=== PATIENT | female | born 1980 | race Hispanic/Latino ===

== ENCOUNTER 2019-01-21 08:36 | Inpatient (IN) | payer BC ==
[2019-01-21 09:26] VITALS: BMI 40.6
[2019-01-21 10:35] LABS: ALT (SGPT) 7 U/L (8-55); AST (SGOT) 10 U/L (5-34); Albumin 2.9 g/dL (3.5-5.0); Alkaline Phosphatase 106 U/L (40-150); Anion Gap 12 mmol/L (10-20); BUN (Urea Nitrogen) 5 mg/dL (7.0-18.7); Bilirubin, Total 0.2 mg/dL (0.2-1.2); Calc. Creatinine Clearance 196 mL/min (70-130); Calcium 8.7 mg/dL (7.8-10.44); Carbon Dioxide 21 mmol/L (22-29); Chloride 109 mmol/L (98-107); Estimated GFR-MDRD Greater than 90; Glucose 73 mg/dL (70-105); Potassium 3.5 mmol/L (3.5-5.1); Protein, Total 5.9 g/dL (6.0-8.3); Sodium 138 mmol/L (136-145)
[2019-01-21 10:37] LABS: Hemoglobin 11.4 g/dL (12.0-16.0); Mean Corpuscular HGB CONC 32.1 g/dL (32.0-36.0); Mean Corpuscular Hemoglobin 28.5 pg (27.0-31.0); Mean Corpuscular Volume 88.6 fL (78.0-98.0); Platelet Count 191 thou/uL (130-400); RBC Distribution Width 12.4 % (11.5-14.5); Red Blood Cell (RBC) Count 3.99 mill/uL (4.20-5.40); White Blood Cell (WBC) Count 9.8 thou/uL (4.8-10.8)
[2019-01-21] MEDS ORDERED: Betamet Acet/Betamet Na Ph 30 MG/5 ML VIAL ONE (12:05)
[2019-01-21] MEDS ORDERED: Betamet Acet/Betamet Na Ph 30 MG/5 ML VIAL IM SCH (12:30)
[2019-01-21 12:34] LABS: Bilirubin Negative (Negative); Blood, Urine Negative (Negative); Clarity CLOUDY (Clear); Glucose, Urine (Dipstick) Negative (Negative); Leukocyte Small (Negative); Nitrite Negative (Negative); Protein, Urine (Dipstick) Negative (Neg-Trace); Specific Gravity, Urine 1.018 (1.002-1.036)
[2019-01-21 12:36] LABS: Hyaline Casts/LPF 7-10 HYALINE CAST LPF (0-3 Hyaline); Pathc Cast-AUWi Flag 1.36 (0-2.49)
[2019-01-21 12:50] LABS: Bacteria/HPF 3+ HPF (None Seen); RBC/HPF 0-3 HPF (0-3); Renal Epithelial None Seen HPF (0-3); Transitional Epithelial NONE SEEN HPF (0-3)
[2019-01-21] MEDS ORDERED: Promethazine HCl 25 MG/ML VIAL IM PRN (14:17)
[2019-01-21] MEDS ORDERED: Ondansetron PF 4 MG/2 ML Vial IVP PRN (14:17)
[2019-01-21] MEDS: Acetaminophen 500 MG TAB PO PRN ×2 (15:08→23:29)
[2019-01-21] MEDS ORDERED: NIFEdipine 10 MG CAP PO PRN (16:05)
[2019-01-21] MEDS ORDERED: Fioricet 325/50/40 mg Tablet PO PRN (17:02)
[2019-01-21] MEDS ORDERED: Labetalol 100 MG TAB PO SCH (21:00)
--- NOTE | 2019-01-21 23:36 | HP ---
ADMISSION DIAGNOSES: 1. G3, P1-0-1-1 at 32 weeks and 1 day. 2. Preeclampsia, superimposed on chronic hypertension. HISTORY OF PRESENT ILLNESS: Ms. Bridget Aranda is a 38-year-old, G3, P1-0-1-1, who was diagnosed with suspected preeclampsia, superimposed on chronic hypertension at approximately 29 weeks' gestational age. The patient's blood pressures have been well controlled on labetalol 100 mg b.i.d. throughout her , and increase in her blood pressure was noted around 29 weeks as well as protein in her urine. The patient has been seen weekly with normal BPPs and normal CBC and CMP. Her blood pressures reportedly at home have been mild range until this week when she noted an increase in the baseline of her blood pressures at home. Yesterday, she was seen in the office after reporting blood pressures of 150s/90s at home and a slight headache that was relieved with Tylenol. I saw her in the office yesterday, and she had a biophysical profile that was within normal limits, and we discussed calling the office for any severe range of blood pressures or features. The patient called the after-hours line early in this morning to report an increase in her blood pressure at home as well as headache. The patient then presented to Labor and Delivery for evaluation. In Labor and Delivery today, the majority of her blood pressures have been in the persistent mild range. At the time of this dictation, she was noted to have one systolic in the 160s and two separate diastolic blood pressures in the 100 range. When she presented with headache, she was given Tylenol. She did not eat breakfast or lunch at the time of her presentation and was given a meal tray. The patient 's headache improved after eating and after Tylenol. Because of the isolated severe range of blood pressures and headache that was reported this morning, we discussed admission observation in Labor and Delivery as well as a dose of Celestone for lung maturity in the event that she was diagnosed with superimposed preeclampsia with severe features, and delivery would be indicated earlier at that time. PAST MEDICAL HISTORY: Obesity, depressive disorder, and chronic hypertension. CURRENT MEDICATIONS: 1. Labetalol 100 mg q PM 2. Aspirin 81 mg daily. 3. Folic acid 4 mg a day. 4. Lansoprazole 30 mg a day. 5. tablet. 6. Prozac 40 mg a day. PREVIOUS SURGICAL HISTORY: No surgeries. FAMILY HISTORY: Significant for hypercholesterolemia, hypertension, and diabetes. PAST OBSTETRICAL HISTORY: Previous vaginal delivery in 2004, 5 pounds 12 ounces born at 38 weeks, induction of labor for -induced hypertension. In 2003, elective termination of in the first trimester. GYNECOLOGIC HISTORY: Unremarkable. PHYSICAL EXAMINATION: VITAL SIGNS: Blood pressure is in the 130s to 150s over 80s to 90s primarily with isolated systolic in the 160 and isolated diastolic in the 100, afebrile. GENERAL: No acute distress. Alert and oriented. CARDIOVASCULAR: Regular rate and rhythm. LUNGS: Nonlabored breathing. ABDOMEN: Gravid, nontender. heart tones reassuring. Contractions, none. : Deferred. EXTREMITIES: +1 lower extremity edema. Normal range of motion. PSYCHIATRIC: Appropriate affect. OBSTETRICAL LABS: Blood type O positive, antibody screen negative, RPR nonreactive, hepatitis B surface antigen negative, HIV nonreactive, Gonorrhea and Chlamydia not detected. Rubella nonimmune. Pap smear normal. Genetic screening, NIPT, low risk male. AFP negative, 1-hour 133, 3 hours abnormal. ASSESSMENT AND PLAN: Ms. Bridget Aranda is a 38-year-old G3, P1-0-1-1 at 32 weeks and 1 day with superimposed preeclampsia on chronic hypertension and concern for possible conversion to severe features. The patient was given a dose of Celestone for lung maturity, and labetalol has been ordered. Labetalol 100mg BID has been ordered as well as Nifedipine 10 mg p.r.n. has been ordered for severe range of blood pressures. Continue observation overnight and if there is a concern of persistent elevated severe range of blood pressures or severe symptoms reported by the patient or lab abnormalities noted on repeat labs in the morning. We will move towards induction of labor. The patient has a second dose of Celestone pending in the morning. She is also known to have gestational diabetes in this and solve the nutrition as per her first visit yesterday. We will check her fasting blood sugar and 2-hour postprandial blood sugars while she is here on Labor and Delivery to continue monitoring. The patient's questions have been answered. Job ID: [id number] [facility]
[2019-01-22] MEDS: Labetalol 100 MG TAB PO SCH ×2 (05:51→18:43)
[2019-01-22] MEDS: Acetaminophen 500 MG TAB PO PRN ×3 (05:51→18:42)
[2019-01-22 06:22] LABS: ALT (SGPT) 8 U/L (8-55); AST (SGOT) 13 U/L (5-34); Alkaline Phosphatase 107 U/L (40-150); Anion Gap 12 mmol/L (10-20); BUN (Urea Nitrogen) 6 mg/dL (7.0-18.7); Bilirubin, Total 0.2 mg/dL (0.2-1.2); Calc. Creatinine Clearance 193 mL/min (70-130); Calcium 9.2 mg/dL (7.8-10.44); Carbon Dioxide 19 mmol/L (22-29); Chloride 109 mmol/L (98-107); Estimated GFR-MDRD Greater than 90; Globulin 3.1 g/dL (2.4-3.5); Glucose 104 mg/dL (70-105); Potassium 3.9 mmol/L (3.5-5.1); Protein, Total 6.1 g/dL (6.0-8.3); Sodium 136 mmol/L (136-145)
[2019-01-22 06:31] LABS: Hemoglobin 11.3 g/dL (12.0-16.0); Mean Corpuscular HGB CONC 33.8 g/dL (32.0-36.0); Mean Corpuscular Hemoglobin 30.3 pg (27.0-31.0); Mean Corpuscular Volume 89.7 fL (78.0-98.0); Mean Platelet Volume 12.3 fL (7.4-10.4); Platelet Count 177 thou/uL (130-400); RBC Distribution Width 12.2 % (11.5-14.5); Red Blood Cell (RBC) Count 3.71 mill/uL (4.20-5.40); White Blood Cell (WBC) Count 13.2 thou/uL (4.8-10.8)
--- NOTE | 2019-01-22 07:48 | HP ---
REGULAR PHYSICIAN: Nathan Brothers DO, MS. EVALUATING PHYSICIAN: Trevor Mcmillan MD CHIEF COMPLAINT: Complaining of headaches over the last 24 hours. HISTORY OF PRESENT ILLNESS: Ms. Aranda is a 38-year-old , G3, P1, with an estimated date of confinement of 03/17/2019, who presents after calling Dr. Brothers's office with a history of headache over the last 24 hours. She states she has seen occasional scotoma, but denies right upper quadrant pain, nausea, or vomiting. Her care has been with Dr. Brothers and has been complicated by pre-existing hypertension for which she takes labetalol 100 mg p.o. daily. She has also been followed for gestational diabetes, but has been controlled on diet alone. PAST MEDICAL HISTORY: Hypertension. PAST SURGICAL HISTORY: None. CURRENT MEDICATIONS: 1. vitamins. 2. Prozac. SOCIAL HISTORY: Denies tobacco or alcohol use. FAMILY HISTORY: Unremarkable. ALLERGIES: NO KNOWN ALLERGIES. REVIEW OF SYSTEMS: She denies decreased movement, ruptured membranes, or vaginal bleeding. PHYSICAL EXAMINATION: VITAL SIGNS: Initial blood pressure is 152/80, followup blood pressure is 134/69. GENERAL: She is pleasant and in no acute distress. ABDOMEN: Soft, nontender, and gravid. heart rate tracing is stable with no decelerations. No significant uterine contractions were seen. ASSESSMENT: 1. A 32 and 1/7 week intrauterine . 2. Chronic hypertension, rule out superimposed preeclampsia. PLAN: CBC, chemistries, and urine for protein and creatinine ratio have been ordered. Her blood pressures will be followed closely. Job ID: [id number]
--- NOTE | 2019-01-22 08:25 | PDOC.EVN ---
Event Note - Event Note Event Note: S: COLINDRES persists, mild->feels like muscles are tight across head and face, does endorse some light sensitivity, no nausea or vomiting, no scotoma, no RUQ pain or increased swelling, good FM, heartburn O: BP normal to mild range on the unit since transfer from L and D NAD A and O nonlabored breathing abd gravid, obese normal ROM, trace LE edema A/P: HOD2 for close observation of BP with superimposed preeclampsia, no severe range BP during last shift, taking labetalol 100mg BID, persistent mild COLINDRES, encouraged hydration, will do trial of sumatriptan this AM. Discussed [employer]ENOGR[employer]IC [employer] REPORTER symptoms of severe features and that with her BP WNL today we will see if COLINDRES resolves with therapy. Labs reviewed and WNL. 2nd dose of Celestone due at noon.
[2019-01-22] MEDS ORDERED: SUMAtriptan Succinate 50 MG TAB PO SCH (08:30)
[2019-01-22] MEDS ORDERED: Betamet Acet/Betamet Na Ph 30 MG/5 ML VIAL IM SCH (12:00)
--- NOTE | 2019-01-22 16:59 | PDOC.EVN ---
Event Note - Event Note Event Note: HD2 S: COLINDRES has improved, is very "light" no RUQ pain or scotoma, good Fm O: Vital Signs (12 hours) Temp Pulse Resp BP BP Pulse Ox 01/22/19 15:30 98.7 F 64 18 154/75 H 01/22/19 12:05 97.8 F 61 20 150/72 H 01/22/19 07:54 98.0 F 61 20 120/61 97 01/22/19 05:51 65 133/67 Weight Weight 215 lb GEN: NAD A adn O Nonlabored breathing Abd gravid PSY: normal affect A/P: HD2 admission for observation with preeclampsia @ 32+ weeks. Labs stable, BP mild range today but overall increased from baseline. S/P 2 doses of Celestone with benefit tomorrow. Discussed continued close observation over night. If AM labs stable/WNL, BP mid range and COLINDRES resolved will plan for DC in AM. If sustained severe BP or features or lab changes will plan for IOL. Plan of care reviewed w patient.
[2019-01-22] MEDS ORDERED: HYDROcodone/Acetaminophen 5/325 mg Tablet PO PRN ×2 (22:13→22:14)
[2019-01-23 06:28] LABS: ALT (SGPT) 7 U/L (8-55); AST (SGOT) 10 U/L (5-34); Alkaline Phosphatase 103 U/L (40-150); Anion Gap 12 mmol/L (10-20); BUN (Urea Nitrogen) 7 mg/dL (7.0-18.7); Bilirubin, Total 0.2 mg/dL (0.2-1.2); Calc. Creatinine Clearance 193 mL/min (70-130); Calcium 9.1 mg/dL (7.8-10.44); Carbon Dioxide 20 mmol/L (22-29); Chloride 108 mmol/L (98-107); Estimated GFR-MDRD Greater than 90; Globulin 3.2 g/dL (2.4-3.5); Glucose 111 mg/dL (70-105); Potassium 3.9 mmol/L (3.5-5.1); Protein, Total 6.2 g/dL (6.0-8.3); Sodium 136 mmol/L (136-145)
[2019-01-23 06:42] LABS: #Eosinphils 0.1 thou/uL (0.0-0.7); #Lymphocytes 1.7 thou/uL (1.20-3.40); #Monocytes 0.7 thou/uL (0.11-0.59); #Neutrophils 11.7 thou/uL (1.40-6.50); %Basophils 0.1 % (0.0-1.0); %Eosinophils 0.4 % (0.0-10.0); %Lymphocytes 12.2 % (21.0-51.0); %Monocytes 5.1 % (0.0-10.0); %Neutrophils 82.3 % (42.0-75.0); Hemoglobin 11.2 g/dL (12.0-16.0); Large Platelets SLIGHT; MDiff Complete? YES; Mean Corpuscular HGB CONC 33.6 g/dL (32.0-36.0); Mean Corpuscular Hemoglobin 30.1 pg (27.0-31.0); Mean Corpuscular Volume 89.4 fL (78.0-98.0); Mean Platelet Volume 11.9 fL (7.4-10.4); Platelet Count 178 thou/uL (130-400); Platelet Morphology Comment Appears Adequate; RBC Distribution Width 12.2 % (11.5-14.5); Red Blood Cell (RBC) Count 3.74 mill/uL (4.20-5.40); White Blood Cell (WBC) Count 14.2 thou/uL (4.8-10.8)
[2019-01-23] MEDS: Labetalol 100 MG TAB PO SCH ×2 (08:36→18:05)
--- NOTE | 2019-01-23 10:14 | PDOC.EVN ---
Event Note - Event Note Event Note: HD#3 S: COLINDRES had improved yesterday during the day but became more intense last night, not feeling well, feeling weak when COLINDRES is strong. COLINDRES not relieved w Tylenol, or [place] that was ordered overnight. Some temporary improvement after sumatriptan last night. Good FM, no contractions. No RUQ pain, no increase in edema. Pt does report itching on upper extremities that started overnight. O: VS normal to mild range BP Gen: NAD, A and O Chest: non labored breathing Abd: gravid, obese Ext: trace LE edema, moving extremities equally Neuro: no gross focal defects Laboratory Results - last 24 hr 01/23/19 01/23/19 01/23/19 05:48 05:48 05:49 WBC 14.2 H RBC 3.74 L Hgb 11.2 L Hct 33.4 L MCV 89.4 MCH 30.1 MCHC 33.6 RDW 12.2 Plt Count 178 MPV 11.9 H Neutrophils % 82.3 H Neutrophils % (Manual) Not Reportable Lymphocytes % 12.2 L Monocytes % 5.1 Eosinophils % 0.4 Basophils % 0.1 Neutrophils # 11.7 H Lymphocytes # 1.7 Monocytes # 0.7 H Eosinophils # 0.1 Basophils # 0.0 Large Platelets SLIGHT Plt Morphology Comment Appears Adequate Sodium 136 Potassium 3.9 Chloride 108 H Carbon Dioxide 20 L Anion Gap 12 BUN 7 Creatinine 0.62 Estimated GFR (MDRD) Greater than 90 Glucose 111 H POC Glucose 112 H Calcium 9.1 Total Bilirubin 0.2 AST 10 ALT 7 L Alkaline Phosphatase 103 Serum Total Protein 6.2 Albumin 3.0 L Globulin 3.2 Albumin/Globulin Ratio 0.9 L A/P: HD#3 for observation for superimposed PIH on CHTN with BP mild range and no treatment for severe range BP indicated since admission on 01/21. Persistent COLINDRES, refractory to tx w Tylenol, [place], Fioricet and Sumatriptan. Discussed neurology consult with pt and with neurologist building contractor this AM for evaluation of persistent COLINDRES in setting of CHTN/superimposed PIH in . I discussed with the patient that her blood pressures and serial lab evaluation as well as monitoring are reassuring at this time. If neuro consult completed and COLINDRES attributed to preeclampsia then we will move to delivery with COLINDRES as severe criteria for delivery @ 32 weeks. Pt will complete 48hr steroid benefit today at noon. Will FU after neurology consultation for plan of care. Hydrocortisone cream ordered for pruritis.
[2019-01-23] MEDS: Hydrocortisone 1% Cream 30 GM TUBE TOP SCH ×3 (10:21→22:58)
[2019-01-23] MEDS ORDERED: diphenhydrAMINE 50 MG/ML VIAL IVP SCH (17:15)
[2019-01-23] MEDS ORDERED: Metoclopramide HCl 10 MG/2 ML VIAL IVP SCH (17:15)
[2019-01-23] MEDS ORDERED: Ketorolac Tromethamine 30 MG/ML VIAL IVP SCH (17:15)
[2019-01-23] MEDS ORDERED: Sodium Chloride 0.9% 10 ML ONE (17:26)
[2019-01-23] MEDS ORDERED: Morphine 2 MG/ML SYRINGE SLOW IVP SCH (17:45)
[2019-01-23] MEDS ORDERED: Sodium Chloride 0.9% 20 ML ONE (17:47)
--- NOTE | 2019-01-23 22:27 | CON ---
DATE OF CONSULTATION: 01/23/2019 CONSULTING PHYSICIAN: Dr. Brothers. IMPRESSION: Probable migraine. PLAN: Migraine protocol. HISTORY OF PRESENT ILLNESS: Ms. Aranda is a 38-year-old female who is 32 weeks . She came in with complaints of a headache that started earlier this week. It has been fairly persistent, is on the fairly global in location, it has a throbbing quality. There is no associated nausea, vomiting, light or sound sensitivity. The pain does not change with lying down or sitting up. She is not having any transient vision disturbance. She denies any focal neurologic symptoms. She has not had any lapses of awareness or seizure activity. She was mildly hypertensive when she came in. Her pressures have otherwise settled down and she has been afebrile. She denies having a history of bad headaches in the past. She did not make any changes in her lifestyle and denies any trauma. She has not gotten any relief with several medications including hydrocodone. PAST MEDICAL HISTORY: Otherwise negative. ALLERGIES: NONE REPORTED. SOCIAL HISTORY: No tobacco or alcohol. FAMILY HISTORY: Noncontributory. REVIEW OF SYSTEMS: Ten system review of systems is otherwise negative. PHYSICAL EXAMINATION: GENERAL: She is an alert, appropriate woman, lying in bed, in no apparent distress. VITAL SIGNS: Reviewed and appear unremarkable. HEENT: Pupils are equal and reactive. Conjunctivae are clear. Oropharynx is clear. NECK: Supple. No lymphadenopathy noted. NEUROLOGIC: She is alert and appropriate. Her speech is fluent and clear. Cranial nerves are intact. There is good strength bilaterally. There is no fix or drift. Sensations intact to light touch. No abnormal movements are seen. EXTREMITIES: No cyanosis or edema. SUMMARY: This is a 38-year-old woman with complaints of a throbbing headache and nothing remarkable to point the direction of a venous thrombosis, pseudotumor cerebri or other significant processes such as an infection. I would go ahead and try her this evening with migraine protocol and hopefully it will break the cycle. Job ID: [id number]
[2019-01-24] MEDS: Labetalol 100 MG TAB PO SCH (05:26)
[2019-01-24] MEDS: Hydrocortisone 1% Cream 30 GM TUBE TOP SCH (09:05)
[2019-01-24] MEDS ORDERED: NS w/ Oxytocin 10 units 500 ML IV SCH (09:29)
[2019-01-24] MEDS ORDERED: Calcium Gluc 4.6 MEQ/10 ML (100 MG/ML) SLOW IVP PRN ×2 (09:29→13:00)
[2019-01-24] MEDS ORDERED: Lidocaine 1% (PF) 30 ML VIAL SC PRN (09:29)
[2019-01-24] MEDS ORDERED: HYDROcodone/Acetaminophen 5/325 mg Tablet PO PRN (09:29)
[2019-01-24] MEDS ORDERED: Ibuprofen 800 MG TAB PO PRN (09:29)
[2019-01-24] MEDS ORDERED: Promethazine HCl 25 MG/ML VIAL IM PRN (09:29)
[2019-01-24] MEDS ORDERED: Penicillin G Potassium 5 MILL.UNITS in Sodium Chloride 0.9% 100 ML IVPB SCH (09:29)
[2019-01-24] MEDS ORDERED: NS / Oxytocin 40 units/1000ml 1,000 ML IV PRN (09:29)
[2019-01-24] MEDS ORDERED: Magnesium Sulfate 20 GM/WATER 500 ML BAG IVPB SCH (09:29)
[2019-01-24] MEDS ORDERED: Ondansetron PF 4 MG/2 ML Vial IVP PRN (09:29)
[2019-01-24] MEDS ORDERED: Magnesium Sulfate 20 gm/500 ml 20 GM/500 ML BAG ONE (09:48)
[2019-01-24] MEDS: Misoprostol 100 MCG TAB VAG SCH ×4 (10:33→20:39)
[2019-01-24] MEDS: Lactated Ringer's 1,000 ML IV SCH ×2 (10:35→23:33)
--- NOTE | 2019-01-24 11:04 | PDOC.EVN ---
Event Note - Event Note Event Note: HD 4 S: COLINDRES persists but did improve overnight after IV meds (morphine, benadryl, reglan, RX per neuro). O: BP NOW PERSISTENT SEVERE RANGE 170 SYSTOLIC AT 0500 AND NOW 190/100 ON BEDSIDE CHECK W RN. NAD A and O Abd: gravid FHT 150s at bedside Ext: trace edema A/P: Pt now with documented severe range BP this AM at 0500 and 0800. Discussed that despite improvement in COLINDRES (sp neuro consult) IOL is recommended. Will treat now w oral nifedipine, US ordered, magnesium for neuroprotection reviewed, NICU consult placed and IOL planned. OBH aware as well. Pt agrees with plan of care.
[2019-01-24 11:38] LABS: Hemoglobin 11.3 g/dL (12.0-16.0); Mean Corpuscular HGB CONC 34.5 g/dL (32.0-36.0); Mean Corpuscular Hemoglobin 30.7 pg (27.0-31.0); Mean Corpuscular Volume 88.8 fL (78.0-98.0); Mean Platelet Volume 12.3 fL (7.4-10.4); Platelet Count 165 thou/uL (130-400); RBC Distribution Width 12.2 % (11.5-14.5); Red Blood Cell (RBC) Count 3.68 mill/uL (4.20-5.40); White Blood Cell (WBC) Count 16.8 thou/uL (4.8-10.8)
[2019-01-24 12:08] LABS: ALT (SGPT) 8 U/L (8-55); AST (SGOT) 12 U/L (5-34); Alkaline Phosphatase 99 U/L (40-150); Anion Gap 11 mmol/L (10-20); BUN (Urea Nitrogen) 7 mg/dL (7.0-18.7); Bilirubin, Total 0.3 mg/dL (0.2-1.2); Calc. Creatinine Clearance 210 mL/min (70-130); Calcium 8.7 mg/dL (7.8-10.44); Carbon Dioxide 23 mmol/L (22-29); Chloride 106 mmol/L (98-107); Estimated GFR-MDRD Greater than 90; Globulin 2.8 g/dL (2.4-3.5); Glucose 79 mg/dL (70-105); Potassium 3.4 mmol/L (3.5-5.1); Protein, Total 5.8 g/dL (6.0-8.3); Sodium 137 mmol/L (136-145)
--- NOTE | 2019-01-24 12:16 | ULT ---
COMPLETE OB ULTRASOUND: HISTORY: Pre-eclampsia. FINDINGS: A single viable intrauterine fetus is noted, in a cephalic presentation. The placenta is posterior. heart rate is 140 beats per minute. Cervical length is 4.4 cm. Amniotic fluid is within norm al limits. ANATOMY: anatomy is severely limited. The visualized brain, four-chamber heart, stomach, bladder, and three-vessel cord appear unremarkable. BIOMETRY: BPD: 8.1 cm (32 weeks 2 days). HEAD CIRCUMFERENCE: 29.6 cm (32 weeks 5 days). ABDOMINAL CIRCUMFERENCE: 28.5 CM (32 weeks 4 days). FEMUR LENGTH: 6.3 cm (32 weeks 3 days). IMPRESSION: 1. Single viable intrauterine fetus, at 32 weeks 4 days. 2. Expected date of confinement 03/17/2019. 3. Estimated weight 1990 g (38th percentile). 4. anatomy was incompletely seen. POS: TPC
[2019-01-24 12:28] LABS: Syphilis Antibody Nonreactive (Nonreactive); Syphilis Antibody Index 0.05 S/CO (<1.00 Non-Reactive)
[2019-01-24 12:30] LABS: HBSAg Index 0.29 S/CO (0-0.99); Hep B Surf Ag Non-Reactive S/CO (NonReactive)
--- NOTE | 2019-01-24 14:07 | PDOC.LDPN ---
Labor & Delivery Progress Note - Subjective Subjective: comfortable - Objective Abnormal vital signs: BP mild range General: resting Dilation: 1 Effacement: 0% Station: -3 FHT: category 1 - Assessment (1) 32 weeks gestation of Code(s): Z3A.32 - 32 WEEKS GESTATION OF Current Visit: Yes Status : Acute (2) Pre-eclampsia superimposed on chronic hypertension Code(s): O11.9 - PRE-EXISTING HYPERTENSION WITH PRE-ECLAMPSIA, UNSP TRIMESTER Current Visit: Yes Status: Acute Plan: continue plan of care -: A/P: 38yo P1 @ 32.4 weeks transferred to L and D unit for IOL for superimposed preeclampsia with severe features (persistent COLINDRES and BP > 160/100) for IOL. -Continue magnesium, discussed use through 24hr PP -Cytotec for cervical ripening -Nifedipine for severe range BP PRN -SP celestone benefit, NICU consult placed -OBH aware of plan of care and will likely assume care later this afternoon
[2019-01-24] MEDS ORDERED: diphenhydrAMINE 50 MG/ML VIAL ONE (15:58)
[2019-01-24] MEDS ORDERED: diphenhydrAMINE 50 MG/ML VIAL IVP PRN (16:05)
[2019-01-24] MEDS: Acetaminophen 500 MG TAB PO PRN ×2 (16:23→22:04)
[2019-01-24] MEDS: Magnesium Sulfate 20 gm/500 ml 20 GM/500 ML BAG IVPB SCH (19:09)
--- NOTE | 2019-01-24 20:40 | PDOC.EVN ---
Event Note - Event Note Event Note: OBGYN magician/illusionist Case reviewed with Dr nobles at hand-off Cytotec induction trial underway Vitals reviewed Mag in use
--- NOTE | 2019-01-25 01:27 | PDOC.EVN ---
Event Note - Event Note Event Note: s/p 4 cytotecs...now 1cm...either balloon or low dose pitocin options. Last cytotec was placed 2029. Was johnnie too much for another dose...we may give one more dose and do balloon after that if needed.
[2019-01-25] MEDS: Misoprostol 100 MCG TAB VAG SCH ×6 (02:07→13:00)
[2019-01-25] MEDS: Lactated Ringer's 1,000 ML IV SCH ×2 (05:00→14:22)
[2019-01-25] MEDS: Magnesium Sulfate 20 gm/500 ml 20 GM/500 ML BAG IVPB SCH ×2 (05:15→15:42)
[2019-01-25 05:39] LABS: Hemoglobin 11.8 g/dL (12.0-16.0); Mean Corpuscular HGB CONC 34.4 g/dL (32.0-36.0); Mean Corpuscular Hemoglobin 30.4 pg (27.0-31.0); Mean Corpuscular Volume 88.3 fL (78.0-98.0); Mean Platelet Volume 11.6 fL (7.4-10.4); Platelet Count 157 thou/uL (130-400); RBC Distribution Width 12.1 % (11.5-14.5); Red Blood Cell (RBC) Count 3.89 mill/uL (4.20-5.40); White Blood Cell (WBC) Count 13.7 thou/uL (4.8-10.8)
[2019-01-25] MEDS: NIFEdipine 10 MG CAP PO PRN ×2 (05:43→21:03)
[2019-01-25 05:56] LABS: ALT (SGPT) 10 U/L (8-55); AST (SGOT) 13 U/L (5-34); Alkaline Phosphatase 109 U/L (40-150); Anion Gap 12 mmol/L (10-20); BUN (Urea Nitrogen) 6 mg/dL (7.0-18.7); Bilirubin, Total 0.3 mg/dL (0.2-1.2); Calc. Creatinine Clearance 200 mL/min (70-130); Calcium 7.5 mg/dL (7.8-10.44); Carbon Dioxide 23 mmol/L (22-29); Chloride 104 mmol/L (98-107); Estimated GFR-MDRD Greater than 90; Glucose 76 mg/dL (70-105); Potassium 3.3 mmol/L (3.5-5.1); Sodium 136 mmol/L (136-145)
[2019-01-25] MEDS: Penicillin G 2.5 MILL.units 2.5 MILL.UNITS in Premix Bag 1 BAG IVPB SCH ×5 (06:00→19:44)
--- NOTE | 2019-01-25 06:14 | PDOC.LDPN ---
Labor & Delivery Progress Note - Subjective Subjective: comfortable - Objective Abnormal vital signs: BPs nonsevere General: NAD, resting, breathing through contractions Uterine fundus: non tender SVE: at 0600 by RN prior to last cytotec (#6) Dilation: 2 Effacement: 75% Station: -1 FHT: category 1 [place] contractions every: irritability,irregular - Assessment (1) 32 weeks gestation of Code(s): Z3A.32 - 32 WEEKS GESTATION OF Current Visit: Yes Status : Acute (2) Pre-eclampsia superimposed on chronic hypertension Code(s): O11.9 - PRE-EXISTING HYPERTENSION WITH PRE-ECLAMPSIA, UNSP TRIMESTER Current Visit: Yes Status: Acute Plan: continue plan of care (Mag in use; likely start pitocin in 3-4 hours after this last cytotec;KISHAN when desired)
[2019-01-25] MEDS: NS w/ Oxytocin 10 units 500 ML IV SCH ×3 (06:51→11:15)
[2019-01-25] MEDS: Butorphanol Tartrate 1 MG/ML VIAL SLOW IVP PRN ×6 (08:11→21:39)
--- NOTE | 2019-01-25 11:06 | PDOC.LDPN ---
Labor & Delivery Progress Note - Subjective Subjective: comfortable, other (headache, improves with stadol ) - Objective Vital signs reviewed and normal: yes (appropriate, adequate urine output.) General: NAD, resting Uterine fundus: palpable contractions Dilation: 2 Effacement: 50% Station: -2 FHT: category 1 [place] contractions every: 2-4 min Other exam findings: bloody mucous. Procedures: Cook's balloon placed under direct visualization. Inflated to 40/40 - Assessment (1) 32 weeks gestation of Code(s): Z3A.32 - 32 WEEKS GESTATION OF Current Visit: Yes Status : Acute (2) Gestational diabetes Code(s): O24.419 - GESTATIONAL DIABETES MELLITUS IN , UNSP CONTROL Current Visit: Yes Status: Acute (3) Pre-eclampsia superimposed on chronic hypertension Code(s): O11.9 - PRE-EXISTING HYPERTENSION WITH PRE-ECLAMPSIA, UNSP TRIMESTER Current Visit: Yes Status: Acute Plan: labor augmentation -: - s/p vaginal cytotec x6 doses. unchanged after last dose. Cook balloon placed at 1100 and pitocin and PCN started. current faustin score 6 so additional cervical ripening required. - continue mag - reassess in 4 hours. Care discussed with Dr. Lopez prior to placement of cook's balloon and initiation of pitocin.
[2019-01-25] MEDS ORDERED: Penicillin G Potassium 5 MILL.UNITS in Sodium Chloride 0.9% 100 ML IVPB SCH (11:30)
[2019-01-25] MEDS ORDERED: Penicillin G 2.5 MILL.units 0 ML ONE (15:16)
--- NOTE | 2019-01-25 16:02 | PRG ---
DATE OF SERVICE: 01/25/2019 TIME OF SERVICE: 1540 hours. SUBJECTIVE: The patient is relaxing comfortably. Blood pressures are in non-severe range for preeclampsia. She had a Cook balloon placed approximately 4-1/2 hours ago. She is having mild cramping. Pitocin is currently on 10. Urine output is greater than 100 mL/hour. She has a mild headache that has been consistent since her magnesium was started for preeclampsia superimposed on chronic hypertension. heart rate tracing is category I. LABORATORY DATA: Last labs were done early this morning with a normal platelet count. Mildly low potassium, normal creatinine, normal LFTs. PLAN: Continue Cook balloon until it falls out or 12 hours. Continue Pitocin. Continue magnesium. Anticipate spontaneous vaginal delivery. We will check magnesium level, if urine output decreases. Otherwise, we will recheck labs on a.m. of 01/26. Anticipate spontaneous vaginal delivery. Epidural for labor analgesia when requested by patient. Job ID: [id number]
--- NOTE | 2019-01-25 17:00 | PDOC.LDPN ---
Labor & Delivery Progress Note - Subjective Subjective: comfortable, other (back pain, headache) - Objective Vital signs reviewed and normal: yes (BP 140-150s/80-90s) General: NAD, resting Uterine fundus: palpable contractions SVE: Cook balloon in place. Does not move with traction FHT: category 1 [place] contractions every: 2-3 min Other exam findings: patellar reflexes 1+, UOP >100 mL/hr - Assessment (1) 32 weeks gestation of Code(s): Z3A.32 - 32 WEEKS GESTATION OF Current Visit: Yes Status : Acute (2) Gestational diabetes Code(s): O24.419 - GESTATIONAL DIABETES MELLITUS IN , UNSP CONTROL Current Visit: Yes Status: Acute (3) Pre-eclampsia superimposed on chronic hypertension Code(s): O11.9 - PRE-EXISTING HYPERTENSION WITH PRE-ECLAMPSIA, UNSP TRIMESTER Current Visit: Yes Status: Acute Plan: continue plan of care -: Per Dr. Lopez's note, repeat labs in the morning. Will reassess in 3-4 hours unless indicated sooner. Continue stadol for pain. Epidural available when desired. BP stable. No PRNs required at this time.
[2019-01-25] MEDS ORDERED: hydrALAZINE 20 MG/ML VIAL SLOW IVP PRN (21:17)
[2019-01-25] MEDS ORDERED: Fentanyl 4 mcg/Bup 0.1% Cadd 0 ML ONE (21:19)
--- NOTE | 2019-01-25 21:19 | PDOC.LDPN ---
Labor & Delivery Progress Note - Subjective Subjective: comfortable - Objective Vital signs reviewed and normal: yes General: NAD, resting Uterine fundus: non tender Dilation: 4 Effacement: 50% Station: -2 FHT: category 1 [place] contractions every: 5 Other exam findings: pit at 10. balloon out AROM: clear fluid IUPC placed: yes Plan: continue plan of care
[2019-01-25] MEDS ORDERED: Fentanyl 4 mcg/Bup 0.1% Cadd 100 ML ONE (21:25)
[2019-01-25] MEDS: hydrALAZINE 20 MG/ML VIAL SLOW IVP PRN (21:33)
--- NOTE | 2019-01-25 23:07 | PDOC.APC ---
Antepartum Consult Neonatology Consult Note: BOB PAT is a 38 year old female at [ 32 5/7 weeks ] gestational weeks. I was asked by Dr. Lopez to see Ms. Pat for consultation in anticipation of delivery. Ms. Pat is undergoing induction of labor for severe pre-eclampsia; she is on MagSO4, and is receiving Radha prophylaxis for unknown GBS status, risk factor: gestation. Mother received IM steroids for lung maturation on 01/22-01/23. Artificial rupture of membranes was this evening at ~ 9 pm. Mother reports estimated weight to be about 4# . I discussed with Ms. Pat the expected plan of care surrounding the of her baby (a boy, name to be announced after delivery). I explained that initial assessment and stabilization of her baby will focus on the respiratory and circulatory status of the infant. I explained that baby michael Pat may need some respiratory support - particularly in light of maternal MagSO4 therapy as this may cause respiratory depression in the - with the possible need for supplemental oxygen, CPAP, or endotracheal intubation and mechanical ventilation. Given that mother recently received steroids, baby may require no respiratory support at all. We also discussed other risk factors associated with prematurity such as, temperature instability, hypoglycemia, jaundice, or feeding difficulties. I explained the need for IV access for administration of fluids and medications, and that we will start gavage feeds at small volumes and advance slowly. I explained the importance of providing human milk to lessen the risk of necrotizing entercolitis; I encouraged mother to start pumping her breasts as soon after delivery as possible, and that we can offer her baby human donor milk for his initial feeds while waiting for her milk supply to increase. I told Ms. Pat to expect her baby to be hospitalized at least until his March 17 due date, but that he may be able to go home sooner if he has no serious complications during his NICU stay. Mother voiced understanding of all we discussed, and had the opportunity to ask questions. Charge nurse Tanya Beach accompanied me during the consultation. Olamide Perdomo MD [facility] Neonatology Labs: Ante Labs Blood Type O POSITIVE 01/24/19 11:15 Hep Bs Antigen Non-Reactive S/CO (NonReactive) 01/24/19 11:15
[2019-01-25] MEDS ORDERED: Communication Order-Pharmacy FS SCH (23:45)
[2019-01-25] MEDS ORDERED: Fentanyl 4 mcg/Bupivacaine 0.1% Cassette 100 ML EPIDURAL SCH (23:45)
[2019-01-25] MEDS ORDERED: Eucerin (Mineral Oil/Petrolatum,White) 30 gm Jar TOP PRN (23:57)
[2019-01-25] MEDS ORDERED: ePHEDrine/0.9% NaCl/PF SYRINGE 50 mg/10 ml SLOW IVP PRN (23:57)
[2019-01-25] MEDS ORDERED: Promethazine HCl 25 MG/ML VIAL IM PRN (23:57)
[2019-01-25] MEDS ORDERED: Naloxone HCl 0.4 mg/ml Vial IVP PRN ×2 (23:57)
[2019-01-25] MEDS ORDERED: diphenhydrAMINE 50 MG/ML VIAL IVP PRN (23:57)
[2019-01-25] MEDS ORDERED: Acetaminophen 325 MG TAB PO PRN (23:57)
[2019-01-25] MEDS ORDERED: Ondansetron PF 4 MG/2 ML Vial IVP PRN (23:57)
[2019-01-25] MEDS ORDERED: Lactated Ringer's 500 ML IV PRN (23:57)
[2019-01-26] MEDS: hydrALAZINE 20 MG/ML VIAL SLOW IVP PRN (00:07)
--- NOTE | 2019-01-26 00:12 | PDOC.LDPN ---
Labor & Delivery Progress Note - Subjective Subjective: comfortable, painful contractions, vaginal pressure - Objective Abnormal vital signs: BP 170/100 General: breathing through contractions, other Uterine fundus: palpable contractions Dilation: 7 Effacement: 75% Station: -1 FHT: category 1 (acceleration present with contractions. ), variability present [place] contractions every: 2-3 min. Adequate MVU - Assessment (1) 32 weeks gestation of Code(s): Z3A.32 - 32 WEEKS GESTATION OF Current Visit: Yes Status : Acute (2) Gestational diabetes Code(s): O24.419 - GESTATIONAL DIABETES MELLITUS IN , UNSP CONTROL Current Visit: Yes Status: Acute Qualifiers: Gestational diabetes mellitus control: unspecified (3) Pre-eclampsia superimposed on chronic hypertension Code(s): O11.9 - PRE-EXISTING HYPERTENSION WITH PRE-ECLAMPSIA, UNSP TRIMESTER Current Visit: Yes Status: Acute -: - cHTN with supreimposed Pre-eclampsia with severe features: received dose of hydralazine at 2130. Will repeat hydralazine since BP again in severe range. patient just received epidural but minimally effective at this time. Has been bolused again by anesthesia. Continue mag. Repeat labs at 0300. UOP >100 mL/hr. - IOL: cervical change occurring. continue pitocin. - GDM: blood glucose well controlled.
[2019-01-26] MEDS ORDERED: Bisacodyl 10 MG SUPP PR PRN (00:37)
[2019-01-26] MEDS ORDERED: Carboprost 250 MCG/ML AMP ONE (00:37)
[2019-01-26] MEDS ORDERED: Methylergonovine 0.2 MG/ML VIAL ONE (00:37)
[2019-01-26] MEDS ORDERED: Promethazine HCl 25 MG/ML VIAL IM PRN (00:37)
[2019-01-26] MEDS ORDERED: Misoprostol 200 MCG TAB ONE (00:37)
[2019-01-26] MEDS ORDERED: NS / Oxytocin 40 units/1000ml 1,000 ML ONE ×2 (00:37→01:11)
[2019-01-26] MEDS ORDERED: Milk Of Magnesia 30 ML UDCUP PO PRN (00:37)
[2019-01-26] MEDS ORDERED: diphenhydrAMINE 25 MG CAP PO PRN (00:37)
[2019-01-26] MEDS ORDERED: Preparation H Ointment 28 GM TUBE PR PRN (00:37)
[2019-01-26] MEDS ORDERED: Lanolin Ointment 7 GM TUBE TOP PRN (00:37)
[2019-01-26] MEDS ORDERED: Zolpidem Tartrate 5 MG TAB PO PRN (00:37)
[2019-01-26] MEDS ORDERED: Benzocaine-Menthol 82.5 ML CAN TOP PRN (00:37)
[2019-01-26] MEDS ORDERED: HYDROcodone/Acetaminophen 5/325 mg Tablet PO PRN (00:37)
[2019-01-26] MEDS ORDERED: Misoprostol 200 MCG TAB VAG PRN (00:37)
[2019-01-26] MEDS ORDERED: Ondansetron PF 4 MG/2 ML Vial IVP PRN (00:37)
[2019-01-26] MEDS ORDERED: Calcium Gluconate 4.6 MEQ in Sodium Chloride 0.9% 100 ML IVPB PRN (00:37)
--- NOTE | 2019-01-26 00:42 | PDOC.OPDEL ---
OB Operative/Delivery Note Delivery Dr/Surgeon: Layla Cox [place] Pre-Delivery Diagnosis: medically indicated induction (severe pih 32 wk) Procedure/Post Delivery Dx: spontaneous vaginal delivery Weeks gestation: 32 Anesthesia: epidural - Additional Findings/Plan Placenta delivered: spontaneous Repaired Obstetrical Laceration: none Estimated blood loss: qbl pending Post delivery plan: recovery in LICU
[2019-01-26] MEDS ORDERED: NS / Oxytocin 40 units/1000ml 1,000 ML IV SCH (00:45)
[2019-01-26] MEDS: Ibuprofen 800 MG TAB PO SCH ×3 (01:06→22:54)
[2019-01-26] MEDS: Magnesium Sulfate 20 gm/500 ml 20 GM/500 ML BAG IVPB SCH ×3 (01:14→20:34)
[2019-01-26] MEDS ORDERED: Metoclopramide HCl 10 MG/2 ML VIAL IVP SCH (01:15)
--- NOTE | 2019-01-26 01:51 | DN ---
DATE OF PROCEDURE: 01/26/2019 PROCEDURE: Spontaneous vaginal delivery. RESIDENT PHYSICIAN: Fausto Rios MD ATTENDING PHYSICIAN: Yazan Lopez MD PREPROCEDURE DIAGNOSES: 1. Induction of labor for chronic hypertension with superimposed preeclampsia with severe features. 2. Gestational diabetes type A. 3. Advanced maternal age. 4. intrauterine at 32.6 weeks. POSTPROCEDURE DIAGNOSES: 1. intrauterine , delivered. 2. Gestational diabetes type A. 3. Advanced maternal age. 4. intrauterine at 32.6 weeks. 5. Chronic hypertension with superimposed preeclampsia with severe features. QUANTITATIVE BLOOD LOSS: 350 mL. INDICATION: Ms. Aranda is a 38-year-old 3, para 1-0-1-1, who presented to the hospital at 32.1 weeks with known chronic hypertension with superimposed preeclampsia. There was concern at this time that she was developing severe features, that she had developed a headache and severe range blood pressures. She underwent steroids to promote lung maturity and was started on magnesium for eclampsia prophylaxis. She underwent cervical ripening with Cytotec and received 6 doses, which brought her to a cervical exam of 2, 60, and -2. She then had Cook's balloon placed for approximately 11 hour, which caused her cervix to dilate to 4, 80, and -1. During the last 4 hours of her delivery, she began to develop severe range systolic blood pressures of 170 to 180. This required IV hydralazine to control. PROCEDURE IN DETAIL: After antepartum course with the previously detailed complications and events, a viable male infant was delivered over intact perineum in the occiput anterior position at 0033 hours on 01/26/2019. The child was noted to have poor tone and was making minimal respiratory effort. The cord was immediately cut and clamped, and the child was handed off to the awaiting NICU team. Cord gas segment and cord blood were obtained. Third stage labor was actively managed and the placenta was delivered at 0037 hours. Bimanual massage was performed and the uterus was noted to have poor tone and IV Pitocin bolus and bimanual sounds were performed with resolution of the uterine atony and bleeding. Small clots were evacuated from the lower uterine segment. The fundus was inspected and the uterine atony had returned. Bimanual massage was again performed and the patient was given Hemabate 0.25 mg IM. This resolved her uterine atony and bleeding. Cytotec 800 mcg was placed rectally to further improve uterine tone. The cervix and vagina were inspected and found to be free of lacerations or abrasions. The patient will remain on labor and delivery unit for magnesium for at least 24 hours or until severe range pressures and symptoms resolve. FINDINGS: 1. Grossly normal placenta with 3-vessel cord, sent to pathology. 2. Arterial blood gas segment with analysis pending at this time. 3. viable male infant who was taken to the NICU for further care. The Apgars were 3, 6, and 8 at 1, 5, and [address] Lopez was present for the entire delivery. Job ID: [id number] [facility]
[2019-01-26 05:36] LABS: AST (SGOT) 15 U/L (5-34); Anion Gap 12 mmol/L (10-20); BUN (Urea Nitrogen) 5 mg/dL (7.0-18.7); Calc. Creatinine Clearance 203 mL/min (70-130); Calcium 7.3 mg/dL (7.8-10.44); Carbon Dioxide 22 mmol/L (22-29); Chloride 105 mmol/L (98-107); Estimated GFR-MDRD Greater than 90; Glucose 97 mg/dL (70-105); Magnesium 4.9 mg/dL (1.6-2.6); Potassium 3.3 mmol/L (3.5-5.1); Sodium 136 mmol/L (136-145)
[2019-01-26 05:40] LABS: Band 5 % (5-11); Hemoglobin 12.1 g/dL (12.0-16.0); Lymphocytes 6 % (21-51); MDiff Complete? YES; Mean Corpuscular HGB CONC 34.3 g/dL (32.0-36.0); Mean Corpuscular Hemoglobin 30.4 pg (27.0-31.0); Mean Corpuscular Volume 88.5 fL (78.0-98.0); Mean Platelet Volume 12.1 fL (7.4-10.4); Monocytes 5 % (0-10); Neutrophil 84 % (42-75); Nucleated RBC 1 % (0); Platelet Count 153 thou/uL (130-400); Platelet Morphology Comment Appears Adequate; RBC Morphology Normal
--- NOTE | 2019-01-26 07:41 | PRG ---
DATE OF SERVICE: 01/26/2019 TIME OF SERVICE: 0725 hours. SUBJECTIVE: The patient is now approximately 5 hours . She is resting comfortably. Headaches resolved with Raglan. OBJECTIVE: VITAL SIGNS: Stable. Blood pressures are 140s/88 or less. Afebrile. Pulse 85, respirations 18. Urine output is greater than 150 mL/h. GENITOURINARY: Fundus is firm and nontender. Normal lochia. EXTREMITIES: No clubbing, cyanosis, or edema. DTRs 1+. LABORATORY DATA: Hematocrit this morning is 35% with a normal platelet count. AST is normal at 15. Magnesium is 4.9. IMPRESSION: A 32 to 33 weeks gestation, now status post spontaneous vaginal delivery with chronic hypertension, superimposed preeclampsia. PLAN: Magnesium sulfate for approximately 20 to 24 hours , then discontinue, and routine care on the floor with close blood pressure following. Job ID: [id number]
[2019-01-26] MEDS ORDERED: Adacel (T-DAP) 0.5 ML SYRINGE IM ONE (09:00)
[2019-01-26] MEDS ORDERED: Fentanyl 100 MCG/2 ML VIAL ONE (09:53)
[2019-01-26] MEDS: Docusate Calcium (SURFAK) 240 MG CAP PO SCH ×2 (09:57→21:07)
[2019-01-26] MEDS: Ferrous Sulfate 325 MG TAB PO SCH ×2 (09:57→19:40)
[2019-01-26] MEDS: Prenatal Vitamin 1 TAB PO SCH (09:57)
[2019-01-26] MEDS: HYDROcodone/Acetaminophen 5/325 mg Tablet PO PRN (09:57)
[2019-01-26] MEDS ORDERED: FLUoxetine HCl 20 MG CAP PO SCH (10:15)
[2019-01-26] MEDS ORDERED: Bupivacaine HCl 0.25%/Epi 0.0005/PF 10 ML VIAL FS ONE (11:11)
[2019-01-26] MEDS: Misoprostol 100 MCG TAB VAG SCH ×2 (19:35→19:36)
[2019-01-26] MEDS: Lactated Ringer's 1,000 ML IV SCH ×2 (19:36→23:49)
[2019-01-26] MEDS: NS w/ Oxytocin 10 units 500 ML IV SCH (19:37)
[2019-01-26] MEDS: Penicillin G 2.5 MILL.units 2.5 MILL.UNITS in Premix Bag 1 BAG IVPB SCH (19:38)
--- NOTE | 2019-01-26 23:20 | PDOC.EVN ---
Event Note - Event Note Event Note: POD1 Primary CS for PREECLAMPSIA MagSulfate in use (close to 24 hours) S. Doing well, no PIH SXS currently O. I have reviewed BPs: range from 130/80s-150/80s; no severe BPs. UOP adequate. SCDs in bed A/P: POD 1 s/p primary CS now s/p close to 24 hours mag sulfate. OK to stop mag use and transfer to floor. I suspect BPs will improve as diuresis continues. I will put in floor transfer orders. Dr Brothers to resume care in AM
--- NOTE | 2019-01-26 23:42 | PDOC.EVN ---
Event Note - Event Note Event Note: MED ADJUSTMENT: Unknown if lisinopril OK for (per PDR)...so, use labetolol 100mg po BID instead..starting tomorrow
[2019-01-27] MEDS: Ibuprofen 800 MG TAB PO SCH ×3 (06:04→21:46)
[2019-01-27] MEDS ORDERED: Lisinopril 10 MG TAB PO SCH (08:00)
--- NOTE | 2019-01-27 08:17 | PDOC.PP ---
Post Progress Note Post Day #: 1 Subjective: Pt is doing well, happy that her COLINDRES has finally resolved. Pumping, visiting baby, minimal lochia. PO intake tolerated: yes Flatus: yes Ambulation: yes Vital Signs (12 hours) Temp Pulse Resp BP BP Pulse Ox 01/27/19 08:00 98.4 F 64 20 153/74 H 96 01/27/19 02:20 98.6 F 63 18 141/75 H 98 Weight Weight 215 lb - Physical Examination General: NAD Respiratory: non-labored breathing Abdominal: no distention Fundus firm & at: below umb Extremities: negative homans (B) Skin: no rash Neurological: no gross focal deficits Psychiatric: A&Ox3, normal affect Result Diagrams: 01/26/19 04:18 01/26/19 04:18 Additional Labs: Post Labs Blood Type O POSITIVE 01/24/19 11:15 Hep Bs Antigen Non-Reactive S/CO (NonReactive) 01/24/19 11:15 (1) 32 weeks gestation of Code(s): Z3A.32 - 32 WEEKS GESTATION OF Status: Acute (2) Pre-eclampsia superimposed on chronic hypertension Code(s): O11.9 - PRE-EXISTING HYPERTENSION WITH PRE-ECLAMPSIA, UNSP TRIMESTER Status: Acute (3) Vaginal delivery Code(s): O80 - ENCOUNTER FOR FULL-TERM UNCOMPLICATED DELIVERY Status: Acute - Assessment/Plan A/P: PPD1 sp IOL for CHTN w superimposed preeclapmsia with severe features w @ 32.6 weeks on 01/26. Was using lisinopril prior to , discussed procardia xl for once daily dosing PP. Will transition today and watch BP closely.
[2019-01-27] MEDS ORDERED: Labetalol 100 MG TAB PO SCH (09:00)
[2019-01-27] MEDS: Docusate Calcium (SURFAK) 240 MG CAP PO SCH ×2 (10:02→21:46)
[2019-01-27] MEDS: FLUoxetine HCl 20 MG CAP PO SCH (10:02)
[2019-01-27] MEDS: Prenatal Vitamin 1 TAB PO SCH (10:02)
[2019-01-27] MEDS: NIFEdipine XL 30 MG TAB PO SCH (10:03)
[2019-01-27] MEDS: Ferrous Sulfate 325 MG TAB PO SCH ×2 (10:03→15:57)
[2019-01-27] MEDS: Misoprostol 100 MCG TAB VAG SCH (10:12)
[2019-01-27] MEDS: HYDROcodone/Acetaminophen 5/325 mg Tablet PO PRN (13:09)
[2019-01-28] MEDS: Ibuprofen 800 MG TAB PO SCH ×2 (05:32→14:03)
[2019-01-28] MEDS: Ferrous Sulfate 325 MG TAB PO SCH (07:47)
[2019-01-28 08:21] VITALS: BP 134/69; TEMP 98.6
[2019-01-28] MEDS: NIFEdipine XL 30 MG TAB PO SCH (09:02)
[2019-01-28] MEDS: FLUoxetine HCl 20 MG CAP PO SCH (09:02)
[2019-01-28] MEDS: Docusate Calcium (SURFAK) 240 MG CAP PO SCH (09:02)
[2019-01-28] MEDS: Prenatal Vitamin 1 TAB PO SCH (09:02)
--- NOTE | 2019-01-28 10:41 | PDOC.PP ---
Post Progress Note Post Day #: 2 Subjective: doing well, COLINDRES resolved, pumping, no SE noted w procardia, desires DC to bed and breakfast PO intake tolerated: yes Flatus: yes Ambulation: yes Vital Signs (12 hours) Temp Pulse Resp BP BP BP Pulse Ox 01/28/19 09:02 54 L 134/69 01/28/19 08:00 98.6 F 54 L 20 134/69 95 01/28/19 05:30 98.0 F 52 L 18 135/68 01/28/19 00:00 98.5 F 60 18 137/71 Weight Weight 215 lb - Physical Examination General: NAD Respiratory: non-labored breathing Abdominal: no distention Neurological: no gross focal deficits Psychiatric: A&Ox3, normal affect Result Diagrams: 01/26/19 04:18 01/26/19 04:18 Additional Labs: Post Labs Blood Type O POSITIVE 01/24/19 11:15 Hep Bs Antigen Non-Reactive S/CO (NonReactive) 01/24/19 11:15 (1) 32 weeks gestation of Code(s): Z3A.32 - 32 WEEKS GESTATION OF Status: Acute (2) Pre-eclampsia superimposed on chronic hypertension Code(s): O11.9 - PRE-EXISTING HYPERTENSION WITH PRE-ECLAMPSIA, UNSP TRIMESTER Status: Acute (3) Vaginal delivery Code(s): O80 - ENCOUNTER FOR FULL-TERM UNCOMPLICATED DELIVERY Status: Acute - Assessment/Plan PPD2 doing well w normal BP on Procardia 30 ER and no severe features or symptoms after IOL @ 32+ weeks for superimposed PIH w severe features. Plan for DC today to bed and breakfast, breast pump ordered.
--- NOTE | 2019-01-29 02:19 | DIS ---
DATE OF ADMISSION: 01/21/2019 DATE OF DISCHARGE: 01/28/2019 ADMISSION DIAGNOSES: 1. 32 weeks gestation. 2. Superimposed preeclampsia on chronic hypertension. 3. Persistent headache. DISCHARGE DIAGNOSIS: Status post spontaneous vaginal delivery at 32 weeks and 6 days after induction of labor for chronic hypertension with superimposed preeclampsia with severe features. HOSPITAL COURSE: Ms. Bridget Aranda was admitted on 01/21/2019, with known superimposed preeclampsia, reporting headache and severe range pressures at home. She was admitted for steroids and observation of blood pressure and symptoms. On hospital day #4, she was noted to have persistently elevated severe range pressures and change in intensity of her headache, which had previously been evaluated with Dr. Cruz from Neurology. At that point, the patient was determined to have severe criteria and counseled for induction of labor. Her induction of labor began on 01/24/2019, and she subsequently delivered a vaginal delivery with the OB hospitalist on 01/26/2019. By post day #2, the patient was doing very well. Her blood pressures were controlled with Procardia XL 30 mg once a day. She had no symptoms or adverse side effects that she noted from the Procardia. She was pumping, ambulating, tolerating regular diet, had minimal discomfort. Her headache resolved after delivery of the infant and had not returned as of day #2. The patient was discharged home in good condition with plans for close blood pressure monitoring at home and follow up in our office. Job ID: [id number]
== END 2019-01-28 17:00 | disposition home or self-care (01) | DRG 807 ==
LOC: L&D/OP 08:36 → OBSVTOIN 15:49 → L&D 15:49 → 3SE 22:04 → L&D 01-24 09:41 → 3SW 01-27 02:23
PROVIDERS: ADMIT Obstetrics & Gynecology; ATTEND Obstetrics & Gynecology
PROC: 3E033VJ Introduction of Other Hormone into Peripheral Vein, Percutaneous Approach (ICD-10-PCS; 2019-01-25)
PROC: 3E0P7VZ Introduction of Hormone into Female Reproductive, Via Natural or Artificial Opening (ICD-10-PCS; 2019-01-25)
PROC: 0U7C7ZZ Dilation of Cervix, Via Natural or Artificial Opening (ICD-10-PCS; 2019-01-25)
PROC: 10E0XZZ Delivery of Products of Conception, External Approach (ICD-10-PCS; principal; 2019-01-26)
DX: O11.4 Pre-existing hypertension with pre-eclampsia, complicating childbirth (principal); Z37.0 Single live birth; O24.420 Gestational diabetes mellitus in childbirth, diet controlled; Z3A.32 32 weeks gestation of pregnancy; Z79.899 Other long term (current) drug therapy; Z79.82 Long term (current) use of aspirin
CPT/HCPCS: 36415; 36416; 51702; 59025; 76805; 80048; 80053; 81003; 81015; 82805; 83735; 84450; 85025; 85027; 86780; 86850; 86900; 86901; 87340; 88307; 99285; C1726; J0360; J0595; J0702; J1200; J2001; J2210; J2270; J2540; J2590; J2765; J3010; J3475; J3490

== ENCOUNTER 2019-03-20 09:10 | Emergency (ER) | payer BC ==
[2019-03-20 09:57] LABS: #Eosinphils 0.2 thou/uL (0.0-0.7); #Lymphocytes 1.7 thou/uL (1.20-3.40); #Monocytes 0.5 thou/uL (0.11-0.59); #Neutrophils 6.4 thou/uL (1.40-6.50); %Basophils 0.5 % (0.0-1.0); %Eosinophils 1.9 % (0.0-10.0); %Lymphocytes 19.4 % (21.0-51.0); %Neutrophils 72.3 % (42.0-75.0); Hemoglobin 12.1 g/dL (12.0-16.0); Mean Corpuscular HGB CONC 35.4 g/dL (32.0-36.0); Mean Corpuscular Hemoglobin 30.2 pg (27.0-31.0); Mean Corpuscular Volume 85.3 fL (78.0-98.0); Mean Platelet Volume 10.6 fL (7.4-10.4); Platelet Count 224 thou/uL (130-400); RBC Distribution Width 12.2 % (11.5-14.5); White Blood Cell (WBC) Count 8.9 thou/uL (4.8-10.8)
[2019-03-20 10:11] LABS: ALT (SGPT) 29 U/L (8-55); AST (SGOT) 50 U/L (5-34); Albumin 3.7 g/dL (3.5-5.0); Alkaline Phosphatase 120 U/L (40-150); Anion Gap 12 mmol/L (10-20); BUN (Urea Nitrogen) 9 mg/dL (7.0-18.7); Bilirubin, Total 0.4 mg/dL (0.2-1.2); Calc. Creatinine Clearance 0 mL/min (70-130); Calcium 9.1 mg/dL (7.8-10.44); Carbon Dioxide 25 mmol/L (22-29); Chloride 107 mmol/L (98-107); Estimated GFR-MDRD 68; Globulin 2.8 g/dL (2.4-3.5); Glucose 101 mg/dL (70-105); Lipase 31 U/L (8-78); Potassium 3.6 mmol/L (3.5-5.1); Protein, Total 6.5 g/dL (6.0-8.3); Sodium 140 mmol/L (136-145)
--- NOTE | 2019-03-20 10:53 | ULT ---
RIGHT UPPER QUADRANT ULTRASOUND: Date: 03/20/19 HISTORY: Right upper quadrant pain. FINDINGS: Multiple mobile gallstones are seen without gallbladder wall thickening or pericholecystic fluid. The common duct measures 3.0 mm in diameter. The liver, right kidney, and visualized portions of the sadler creas are unremarkable. No free fluid is seen in Morison's pouch. IMPRESSION: Cholelithiasis. POS: OFF
[2019-03-20] MEDS ORDERED: Famotidine/PF 20 mg/2ml Vial ONE (10:56)
== END 2019-03-20 11:24 | disposition home or self-care (01) ==
LOC: SCSER 09:10
DX: K80.20 Calculus of gallbladder without cholecystitis without obstruction (principal); I10 Essential (primary) hypertension; K21.9 Gastro-esophageal reflux disease without esophagitis; F41.9 Anxiety disorder, unspecified; F32.9 Major depressive disorder, single episode, unspecified
CPT/HCPCS: 76705; 80053; 83690; 85025; 93005; 96374; S0028

== ENCOUNTER 2019-04-01 16:52 | Outpatient (CLI) | payer BC ==
[2019-04-01 17:40] LABS: #Basophils 0.1 thou/uL (0.0-0.2); #Eosinphils 0.1 thou/uL (0.0-0.7); #Lymphocytes 2.9 thou/uL (1.20-3.40); #Monocytes 0.5 thou/uL (0.11-0.59); %Basophils 0.8 % (0.0-1.0); %Eosinophils 1.1 % (0.0-10.0); %Monocytes 5.1 % (0.0-10.0); %Neutrophils 66.1 % (42.0-75.0); Hemoglobin 12.8 g/dL (12.0-16.0); Mean Corpuscular HGB CONC 33.7 g/dL (32.0-36.0); Mean Corpuscular Hemoglobin 29.7 pg (27.0-31.0); Mean Corpuscular Volume 88.2 fL (78.0-98.0); Mean Platelet Volume 10.3 fL (7.4-10.4); Platelet Count 226 thou/uL (130-400); RBC Distribution Width 11.9 % (11.5-14.5); Red Blood Cell (RBC) Count 4.29 mill/uL (4.20-5.40); White Blood Cell (WBC) Count 10.6 thou/uL (4.8-10.8)
[2019-04-01 18:01] LABS: Anion Gap 11 mmol/L (10-20); BUN (Urea Nitrogen) 8 mg/dL (7.0-18.7); Calc. Creatinine Clearance 0 mL/min (70-130); Calcium 9.6 mg/dL (7.8-10.44); Carbon Dioxide 23 mmol/L (22-29); Chloride 107 mmol/L (98-107); Estimated GFR-MDRD Greater than 90; Glucose 98 mg/dL (70-105); Potassium 3.4 mmol/L (3.5-5.1); Sodium 138 mmol/L (136-145)
[2019-04-01 18:02] LABS: ALT (SGPT) 12 U/L (8-55); AST (SGOT) 14 U/L (5-34); Albumin 4.2 g/dL (3.5-5.0); Alkaline Phosphatase 109 U/L (40-150); Bilirubin, Direct 0.2 mg/dL (0.1-0.3); Bilirubin, Total 0.5 mg/dL (0.2-1.2); Protein, Total 7.1 g/dL (6.0-8.3)
== END 2019-04-01 16:53 | disposition home or self-care (01) ==
LOC: LABBT 16:52
PROVIDERS: ATTEND Surgery
DX: Z01.812 Encounter for preprocedural laboratory examination (principal); K80.20 Calculus of gallbladder without cholecystitis without obstruction
CPT/HCPCS: 80048; 80076; 85025

== ENCOUNTER 2019-04-03 09:02 | Day surgery (SDC) | payer BC ==
[2019-04-01 17:30] VITALS: BMI 34.7
[2019-04-03] MEDS ORDERED: Midazolam HCl 2 mg/2 ml Vial ONE (10:53)
[2019-04-03] MEDS ORDERED: Scopolamine 1.5 mg/72 hour Patch ONE (10:54)
[2019-04-03] MEDS ORDERED: Bupivacaine/Epinephrine 0.25% 30 ML VIAL ONE (12:03)
[2019-04-03] MEDS ORDERED: Fentanyl 100 MCG/2 ML VIAL ONE ×2 (12:03→13:50)
[2019-04-03] MEDS ORDERED: Lidocaine 2% Jelly 5 ML TUBE ONE (12:04)
[2019-04-03] MEDS ORDERED: Ondansetron PF 4 MG/2 ML Vial ONE (13:02)
[2019-04-03] MEDS ORDERED: ePHEDrine 50 MG/ML VIAL ONE (13:02)
[2019-04-03] MEDS ORDERED: PROPOFOL 200 MG/20 ML VIAL ONE (13:02)
[2019-04-03] MEDS ORDERED: Glycopyrrolate 0.2 MG/ML 5 ML SYRINGE ONE (13:02)
[2019-04-03] MEDS ORDERED: Rocuronium Bromide 10 MG/ML (10ML VIAL) ONE (13:02)
[2019-04-03] MEDS ORDERED: Ketorolac Tromethamine 30 MG/ML VIAL ONE (13:02)
[2019-04-03] MEDS ORDERED: Lidocaine 1% PF 5 ML VIAL ONE (13:02)
[2019-04-03] MEDS ORDERED: Dexamethasone 20 MG/5 ML VIAL ONE (13:02)
--- NOTE | 2019-04-03 15:22 | OP ---
DATE OF PROCEDURE: 04/03/2019 PREOPERATIVE DIAGNOSIS: Symptomatic gallstones. POSTOPERATIVE DIAGNOSIS: Symptomatic gallstones. PROCEDURE PERFORMED: Laparoscopic cholecystectomy. ANESTHESIA: General. ESTIMATED BLOOD LOSS: Minimal. COMPLICATIONS: None. SPECIMEN: Gallbladder. FINDINGS: Chronic cholecystitis. PROCEDURE IN DETAIL: The patient was taken to the operating room and laid supine on the operating room table. After general anesthetic was obtained, the abdomen was prepped and draped in a sterile fashion. A curved incision was made below the umbilicus. Cautery was used to dissect down to the umbilical fascia. Umbilical fascia was incised and held up using a Hermilo. The abdominal cavity was entered using a Dorina clamp. Holding stitch of Vicryl was placed on each side of the fascia. Richter trocar was placed. High-flow pneumoperitoneum was obtained. An upper midline 5 mm port and 2 right upper quadrant 5 mm ports were placed under direct camera visualization. The gallbladder was retracted from the gallbladder fossa. The peritoneum of the gallbladder was opened anteriorly and posteriorly. The critical view triangle was seen showing only the cystic duct and cystic artery branching from medial to lateral. There were no other branching structures. Two clips were placed proximally on the cystic duct and one laterally. It was cut using laparoscopic scissors. The cystic artery was taken in the same way. Electrocautery was then used to dissect the gallbladder out of the gallbladder fossa. The gallbladder was placed in an Endo catch bag and brought out through the Richter. There was no bleeding or bile in the liver bed. The cystic duct stump and cystic artery stump were intact, without evidence of extravasation or bleeding. All port sites were infiltrated using local anesthesia. All ports were removed under camera visualization. Pneumoperitoneum was let down. The Vicryl was used to close the fascial defect below the umbilicus. All incisions were irrigated and closed using 4-0 Monocryl and Dermabond. The patient was en route to Recovery in stable condition. All instrument counts, needle counts and lap counts were correct. Job ID: [id number]
[2019-04-03] MEDS ORDERED: diphenhydrAMINE 50 MG/ML VIAL ONE (15:31)
== END 2019-04-03 15:50 | disposition home or self-care (01) ==
LOC: SDC 09:02
PROVIDERS: ATTEND Surgery
PROC: 0FT44ZZ Resection of Gallbladder, Percutaneous Endoscopic Approach (ICD-10-PCS; principal; 2019-04-03)
DX: K80.10 Calculus of gallbladder with chronic cholecystitis without obstruction (principal); F41.9 Anxiety disorder, unspecified; F32.9 Major depressive disorder, single episode, unspecified; Z79.899 Other long term (current) drug therapy
CPT/HCPCS: 88304; J0131; J0690; J1200; J2250; J3010

== ENCOUNTER 2021-12-01 07:12 | Outpatient (CLI) | payer BC ==
[2021-12-01 09:30] LABS: ALT (SGPT) 16 U/L (8-55); AST (SGOT) 17 U/L (5-34); Albumin 3.8 g/dL (3.5-5.0); Alkaline Phosphatase 73 U/L (40-110); Anion Gap 14 mmol/L (10-20); BUN (Urea Nitrogen) 11 mg/dL (7.0-18.7); Bilirubin, Total 0.5 mg/dL (0.2-1.2); Calc. Creatinine Clearance 0 mL/min (70-130); Calcium 8.6 mg/dL (7.8-10.44); Carbon Dioxide 24 mmol/L (22-29); Chloride 108 mmol/L (98-107); Globulin 2.3 g/dL (2.4-3.5); Glucose 99 mg/dL (70-105); Potassium 4.3 mmol/L (3.5-5.1); Protein, Total 6.1 g/dL (6.0-8.3); Sodium 142 mmol/L (136-145)
[2021-12-01 09:47] LABS: #Eosinphils 0.2 10x3/uL (0.0-0.5); #Monocytes 0.5 10x3/uL (0.0-1.1); #Neutrophils 5.1 10x3/uL (1.5-8.4); %Basophils 0.5 % (0.0-2.0); %Eosinophils 2.9 % (0.0-6.0); %Lymphocytes 28.3 % (18.0-47.0); %Monocytes 6.2 % (0.0-10.0); %Neutrophils 61.7 % (40.0-75.0); Hemoglobin 13.5 g/dL (12.0-15.5); Mean Corpuscular HGB CONC 32.2 g/dL (32.0-36.0); Mean Corpuscular Hemoglobin 29.6 pg (27.0-33.0); Mean Corpuscular Volume 91.9 fl (81.6-98.3); Mean Platelet Volume 13.2 fl (7.4-10.4); Platelet Count 240 10x3/uL (150-450); RBC Distribution Width 12.6 % (11.5-14.5); Red Blood Cell (RBC) Count 4.56 10x6/uL (3.90-5.03); White Blood Cell (WBC) Count 8.3 10x3/uL (3.5-10.5)
[2021-12-01 14:38] LABS: Hemoglobin A1c 5.3 % (4.0-6.0)
== END 2021-12-01 07:13 | disposition home or self-care (01) ==
LOC: LABBT 07:12
PROVIDERS: ATTEND Surgery
DX: Z01.818 Encounter for other preprocedural examination (principal); E66.01 Morbid (severe) obesity due to excess calories
CPT/HCPCS: 71045; 80053; 83036; 85025; 93005; 93010

== ENCOUNTER 2021-12-23 09:44 | Day surgery (SDC) | payer BC ==
[2021-12-23 10:12] VITALS: BP 124/65; TEMP 98.3
== END 2021-12-23 12:56 | disposition home or self-care (01) ==
LOC: ONC/OP 09:44
PROVIDERS: ATTEND Surgery
DX: E86.0 Dehydration (principal)
CPT/HCPCS: 96361; 96365; 96366; 96375; J2405; J3411; J7050

== ENCOUNTER 2022-06-06 13:33 | Outpatient (CLI) | payer BC ==
[~2022-06-06 13:33] MED LIST: Iopamidol-370 76% 500 ML 1 ML ONE
== END 2022-06-06 13:34 | disposition home or self-care (01) ==
LOC: BICCT 13:33
PROVIDERS: ATTEND Surgery
DX: R10.12 Left upper quadrant pain (principal); N20.0 Calculus of kidney; Z98.890 Other specified postprocedural states
CPT/HCPCS: 74177; Q9967

== ENCOUNTER 2023-07-27 14:44 | Outpatient (CLI) | payer BC | END 2023-07-27 14:45 | disposition home or self-care (01) | LOC: BICMAMMO 14:44 | PROVIDERS: ATTEND Obstetrics & Gynecology | DX: R92.8 Other abnormal and inconclusive findings on diagnostic imaging of breast (principal) | CPT/HCPCS: G0279 ==

== ENCOUNTER → 2023-08-01 | Day surgery (SDC) | payer BC | LOC: BICULT 12:30 | PROVIDERS: ATTEND Obstetrics & Gynecology | PROC: 0H9T3ZX Drainage of Right Breast, Percutaneous Approach, Diagnostic (ICD-10-PCS; principal; 2023-08-01) | DX: N60.31 Fibrosclerosis of right breast (principal) | CPT/HCPCS: 19083; 88305 ==